=== PATIENT | male | born 1985 | race Two or more races ===

== ENCOUNTER 2018-06-30 13:40 | Emergency (ER) | payer SELFPAY ==
[~2018-06-30] VITALS: Ht 165.1 cm; Wt 80.7 kg
--- NOTE | 2018-06-30 13:45 | NUR ---
PT TERESA FROM HOME C/O RIGHT HAND BURN FROM COOKING OIL AT HOME. FAMILY AT BEDSIDE. PT AOX4. PT ON MONITOR IN BED 10. WILL CONTINUE TO MONITOR.
[2018-06-30] MEDS ORDERED: MORPHINE SULFATE INJ 10 MG/ML DISP.SYRIN IV ONE (14:00)
[2018-06-30] MEDS ORDERED: ONDANSETRON HCL/PF - ER 4 MG/2 ML VIAL IV ONE (14:00)
[2018-06-30] MEDS ORDERED: IV NS 0.9% 1,000 ML BAG IV ONE (14:00)
[2018-06-30] MEDS ORDERED: CEFAZOLIN 500 MG VIAL IV ONE ×2 (14:00→15:00)
[2018-06-30] MEDS ORDERED: KETOROLAC TROMETHAMINE INJ 30 MG/ML VIAL IV ONE (14:00)
--- NOTE | 2018-06-30 14:00 | NUR ---
ADDENDUM: Intravenous End Time Documentation: Cefazolin 1 gram IVPB : start time: 1400 PM ; end time: 1430 PM : IV site:LAC #20 Port #: 1
[2018-06-30] MEDS ORDERED: KETOROLAC TROMETHAMINE INJ 30 MG/ML VIAL ONE (14:12)
[2018-06-30] MEDS ORDERED: ONDANSETRON HCL/PF 4 MG/2 ML VIAL ONE (14:12)
[2018-06-30] MEDS ORDERED: MORPHINE SULFATE INJ 4 MG/ML DISP.SYRIN ONE (14:13)
[2018-06-30] MEDS ORDERED: TDAP [DIPH/PERTUSSIS/TET] 0.5 ML VIAL IM ONE ×2 (14:13→14:30)
[2018-06-30] MEDS ORDERED: ANCEF 1 GM/50 ML D5W IV ONE ×2 (15:00)
--- NOTE | 2018-06-30 15:13 | NUR ---
Note pettyone in EDM - 06/30/18 at 1516 by LISHA IV removed. Catheter intact and site benign. Pressure and 4x4 applied to site. No bleeding noted.Patient discharged to home in stable condition. Written and verbal after care instructions given. Patient verbalizes understanding of instruction. PT AMBULATORY WITH STEADY GAIT. ESCORTED BY FAMILY.
[2018-06-30] MEDS ORDERED: HYDROMORPHONE 1 MG/1 ML DISP.SYRIN ONE (15:18)
[2018-06-30 15:25] VITALS: BP 146/101
--- NOTE | 2018-06-30 15:25 | NUR ---
Patient discharged to home in stable condition. Written and verbal after care instructions given. Patient verbalizes understanding of instruction. PT AMBULATORY WITH STABLE GAIT ESCORTED BY FAMILY.
[2018-06-30] MEDS ORDERED: HYDROMORPHONE 1 MG/1 ML DISP.SYRIN IV ONE (15:30)
== END 2018-06-30 15:26 | disposition home or self-care (01) ==
LOC: ER 13:43
DX: T23.251A Burn of second degree of right palm, initial encounter (principal); T23.221A Burn of second degree of single right finger (nail) except thumb, initial encounter; T23.201A Burn of second degree of right hand, unspecified site, initial encounter; E86.0 Dehydration; X10.2XXA Contact with fats and cooking oils, initial encounter; Y93.G3 Activity, cooking and baking; Y92.89 Other specified places as the place of occurrence of the external cause; Y99.8 Other external cause status
CPT/HCPCS: 90471; 90715; 96361; 96365; 96375; 99284; A4606; J0690; J1170; J1885; J2270; J2405; J7030; J7060; Z7610